=== PATIENT | female | born 1960 | race Caucasian/White ===

== ENCOUNTER 2018-05-27 06:48 | Day surgery (SDC) | payer OTHER ==
[2018-05-27] MEDS ORDERED: LIDOCAINE 100 MG SYRINGE (08:23)
[2018-05-27] MEDS ORDERED: PROPOFOL 40 ML (08:23)
== END 2018-05-27 14:37 | disposition home or self-care (01) ==
LOC: GIL 06:48
DX: Z12.11 Encounter for screening for malignant neoplasm of colon (principal); K57.31 Diverticulosis of large intestine without perforation or abscess with bleeding; K64.1 Second degree hemorrhoids
CPT/HCPCS: 45378